=== PATIENT | male | born 1960 | race African-American/Black ===

== ENCOUNTER 2019-08-28 23:33 | Emergency (ER) | payer MEDICAID, OTHER ==
[~2019-08-28] VITALS: Ht 172.7 cm; Wt 127.3 kg
[~2019-08-28 23:33] MED LIST: ABX PO
[2019-08-29 00:11] LABS: GLUCOSE,POINT OF CARE 414 MG/DL (70-110)
[2019-08-29] MEDS ORDERED: PERTUSS(ACELL),DIPH,TET VAC/PF 0.5 ML VIAL IM ONE (00:45)
[2019-08-29] MEDS ORDERED: SULFAMETHOX/TRIMETH DS 800-160 MG/TABLET PO ONE (00:45)
[2019-08-29] MEDS ORDERED: CEPHALEXIN MONOHYDRATE 500 MG CAPSULE PO ONE (01:00)
[2019-08-29] MEDS ORDERED: LIDOCAINE 1%/EPI 1:200,000/PF 10 ML VIAL INJ ONE (01:00)
[2019-08-29 01:30] VITALS: BP 144/83
[2019-08-30] MEDS ORDERED: CEPH250 PO (15:59)
[2019-08-30] MEDS ORDERED: SULF1TAB41 PO (15:59)
== END 2019-08-29 02:20 | disposition home or self-care (01) ==
LOC: EMS 23:34
DX: L02.31 Cutaneous abscess of buttock (principal); L03.317 Cellulitis of buttock; E66.9 Obesity, unspecified; F17.210 Nicotine dependence, cigarettes, uncomplicated; Z68.41 Body mass index [BMI] 40.0-44.9, adult
CPT/HCPCS: 10060; 82962; 90471; 90715; 99284; J3490

== ENCOUNTER 2019-08-30 14:48 | Emergency (ER) | payer MEDICAID ==
[~2019-08-30] VITALS: Ht 172.7 cm; Wt 127.3 kg
[2019-08-30] MEDS ORDERED: CEPH250 PO (15:59)
[2019-08-30] MEDS ORDERED: SULF1TAB41 PO (15:59)
[2019-08-30 17:28] VITALS: BP 141/79
== END 2019-08-30 17:28 | disposition home or self-care (01) ==
LOC: EMS 14:53
DX: Z48.01 Encounter for change or removal of surgical wound dressing (principal); L02.31 Cutaneous abscess of buttock; E66.9 Obesity, unspecified; F17.210 Nicotine dependence, cigarettes, uncomplicated; Z68.41 Body mass index [BMI] 40.0-44.9, adult